=== PATIENT | female | born 1950 | race Caucasian/White ===

== ENCOUNTER 2019-03-11 16:00 | Outpatient (CLI) | payer BC ==
--- NOTE | 2019-03-11 16:27 | RAD ---
Cervical spine 5 views flexion and extension HISTORY: Neck pain. FINDINGS: Reversal of the normal lordotic curvature. Anterior operative fixation at the C7-T1 level. No perihardware lucency. Metallic markers associated with interbody fusion material within the confines of the disc space. Disc space narrowing and minimal degenerative retrolisthesis at the C5-6 and C6-7 levels. No abnormal translational motion upon flexion or extension, although very little movement is apparent. Osteophytosis throughout the vertebral bodies and facets. IMPRESSION: Postoperative and prominent degenerative changes cervical spine. No acute osseous abnorma lities are demonstrated.
== END 2019-03-11 16:01 | disposition home or self-care (01) ==
LOC: TBSIIMAG 16:00
PROVIDERS: ATTEND Neurological Surgery
DX: M47.22 Other spondylosis with radiculopathy, cervical region (principal); Z98.890 Other specified postprocedural states
CPT/HCPCS: 72050